=== PATIENT | female | born 1960 | race Caucasian/White ===

== ENCOUNTER 2021-09-15 10:03 | Emergency (ER) | payer BC ==
[2021-09-15] MEDS ORDERED: Sodium Chloride 0.9% 10 ML Syringe FLUSH PRN (10:33)
[2021-09-15] MEDS ORDERED: Adenosine 6 MG/2 ML SDV IVPUSH ONE (11:07)
[2021-09-15 11:11] LABS: ESTIMATED GFR 65 mL/min (>60); TROPONIN I HIGH SENSITIVITY 15.6 pg/mL (<=60.3)
== END 2021-09-15 13:11 | disposition home or self-care (01) ==
LOC: JP.ED 10:03
DX: I47.9 Paroxysmal tachycardia, unspecified (principal); E78.00 Pure hypercholesterolemia, unspecified; F17.210 Nicotine dependence, cigarettes, uncomplicated; Z88.2 Allergy status to sulfonamides; Z79.899 Other long term (current) drug therapy; Z86.16 Personal history of COVID-19; Z20.822 Contact with and (suspected) exposure to COVID-19
CPT/HCPCS: 36415; 71045; 80053; 82550; 83735; 83880; 84484; 85025; 85610; 85730; 87635; 93005; 96374; 99285; J0153; J3490; U0002